=== PATIENT | female | born 1995 | race Caucasian/White ===

== ENCOUNTER 2018-04-11 10:20 | Outpatient (CLI) ==
--- NOTE | 2018-04-11 11:37 | MRI ---
EXAM: MRI cervical spine without IV contrast. DATE: 11 April 2018. HISTORY: Neck pain (sharp, pinching). Stiff neck. Numbness of both hands. TECHNIQUE: Sagittal and axial T1W and T2W sequences of the cervical spine along with sagittal IR and coronal T2W sequences were obtained using 1.5 Audra magnet. No IV contrast. COMPARISON: None. FINDINGS: Minor leftward curvature the mid cervical spine is observed. No acute c-spine fracture, s ubluxation, osseous malignancy, or jumped facet is evident. Cervical vertebrae normal in height. T1 W bone marrow signal is similar to the intervertebral discs, but brighter than the paraspinal muscles . Intervertebral discs are normal in height. Cervical and upper thoracic spinal cord reveals no syr inx, cord edema, myelomalacia, or neoplasm. Visible brainstem and cerebellum are unremarkable. Pituitary gland is slightly small in size. No pi tuitary neoplasm is detected. No mastoid disease is detected. No thyroid, submandibular, or parotid gland neoplasm is evident. Small, benign lymph nodes are present in the anterior cervical chain cyrus aterally. No suspicious neck mass, cervical lymphadenopathy, supraclavicular lymphadenopathy, apical lung mass, pneumonia, or pleural effusion is demonstrated. Segmental analysis: C2-3: Normal. C3-4: Minimal posterior disc bulge (1 mm AP) does not contact the cord. Canal is 12.6 mm AP. Each foramen is patent.. C4-5: Minimal posterior disc bulge (1 mm AP) does not contact the cord. Canal is 11 mm AP. Each fo ramen is patent. C5-6: Normal. C6-7: Normal. C7-T1: Normal. IMPRESSIONS: 1. Minimal posterior disc bulges at C3-4 and C4-5. 2. No cervical cord compression, central canal stenosis or foraminal stenosis. 3. Slightly small pituitary gland.
== END 2018-04-11 10:21 | disposition home or self-care (01) ==
LOC: RAD 10:20
PROVIDERS: ATTEND Nurse Practitioner
DX: M54.2 Cervicalgia (principal)